=== PATIENT | female | born 1950 | race Caucasian/White ===

== ENCOUNTER → 2021-07-21 15:37 | Outpatient (BNVA) | payer MEDICARE, SELFPAY | PROVIDERS: Visit Provider Family Medicine | DX: E11.9 Type 2 diabetes mellitus without complications (principal); E78.2 Mixed hyperlipidemia; J44.9 Chronic obstructive pulmonary disease, unspecified; K21.9 Gastro-esophageal reflux disease without esophagitis; I10 Essential (primary) hypertension; Z68.31 Body mass index [BMI] 31.0-31.9, adult; Z76.89 Persons encountering health services in other specified circumstances | CPT/HCPCS: 80053; 83036; 85025 ==

== ENCOUNTER 2021-10-20 13:52 | Outpatient (CLI) | payer MEDICARE, OTHER, SELFPAY ==
--- NOTE | 2021-10-20 14:15 | USCV_ITS ---
Tita Buchanan Age: 71 Gender: F : 1950 Exam Date: 10/20/2021 14:03 Ordering Phys: Elroy Luevano MD (Andy) ([email or web address] [place] Technologist: Dominik Christine Exam Location: [facility] [place] Indication: occlusion and stenosis of bilateral carotid arteries Risk Factors: known occluded lt ica Previous Vascular Surgery: R CEA Right Brachial BP: / Left Brachial BP: / Right Left Velocity (cm/s) Spectral Plaque Velocity (cm/s) Spectral Plaque Syst/Diast Broadening Syst/Diast Broadening 72.80/ 16.50 Prox CCA 73.80 / 4.70 71.70/ 11.00 Mid CCA 41.10 / 6.40 76.10/ 12.10 Distal CCA 33.60 / 10.70 90.40/ 15.40 Prox ICA / 136.70/30.90 Mid ICA / 119.10/24.30 Distal ICA / 146.60 ECA 330.40 1.91 ICA/CCA Antegrade Vertebral Antegrade 52.80/ 18.60 cm/s 41.10/ 20.80 cm/s Tri Subclavian Tri 83.90 74.60 CONCLUSIONS Prior Right CEA. No recurrent Right ICA stenosis. Right ICA stenosis <50%. Known Left ICA occlusion. Left CCA is patent. >50% Left ECA stenosis Normal antegrade Doppler flow noted in the right vertebral artery. Normal antegrade Doppler flow noted in the left vertebral artery. Gallito Proctor MD (Electronically Signed) Final Date: 20 October 2021 17:07 S
== END 2021-10-20 13:53 | disposition home or self-care (01) ==
LOC: RAD 13:55
PROVIDERS: PCP Nurse Practitioner Adult Health; Visit Provider Thoracic Surgery (Cardiothoracic Vascular Surgery)
DX: I65.23 Occlusion and stenosis of bilateral carotid arteries (principal)
CPT/HCPCS: 93880

== ENCOUNTER → 2021-11-26 10:08 | Outpatient (BNVA) | payer MEDICARE, OTHER, SELFPAY | PROVIDERS: PCP Nurse Practitioner Adult Health; Visit Provider Thoracic Surgery (Cardiothoracic Vascular Surgery) | DX: I65.23 Occlusion and stenosis of bilateral carotid arteries (principal); Z48.812 Encounter for surgical aftercare following surgery on the circulatory system; Z87.891 Personal history of nicotine dependence | CPT/HCPCS: 99213 ==

== ENCOUNTER → 2022-01-20 12:06 | Outpatient (BNVA) | payer MEDICARE, OTHER, SELFPAY | PROVIDERS: PCP Family Medicine; Visit Provider Family Medicine | DX: E78.2 Mixed hyperlipidemia (principal); I10 Essential (primary) hypertension; E11.9 Type 2 diabetes mellitus without complications; L65.9 Nonscarring hair loss, unspecified; K21.9 Gastro-esophageal reflux disease without esophagitis | CPT/HCPCS: 80048; 84439; 84443 ==

== ENCOUNTER 2022-05-10 10:25 | Outpatient (CLI) | payer MEDICARE, OTHER, SELFPAY ==
--- NOTE | 2022-05-10 11:15 | USCV_ITS ---
ChanelTita Age: 71 Gender: F : 1950 Exam Date: 05/10/2022 10:40 Ordering Phys: Elroy Luevano MD (Andy) ([email or web address] [place]) Technologist: PORTER TONG Exam Location: [facility] [place] Indication: rt cea 6 months ago, left side occluded Risk Factors: Previous Vascular Surgery: Right Brachial BP: / Left Brachial BP: / Right Left Velocity (cm/s) Spectral Plaque Velocity (cm/s) Spectral Plaque Syst/Diast Broadening Syst/Diast Broadening 89.20/ 20.00 Prox CCA 45.60 / 7.20 91.60/ 17.60 Mid CCA 33.90 / 8.50 82.20/ 23.50 Distal CCA 37.80 / 9.80 117.60/30.20 Prox ICA / 104.00/22.90 Mid ICA / 97.80/ 25.70 Distal ICA / 123.80 ECA 310.20 1.28 ICA/CCA Antegrade Vertebral Antegrade 43.80/ 12.90 cm/s 46.30/ 20.90 cm/s Bi Subclavian Bi 63.10 104.7 0 CONCLUSIONS Right ICA stenosis <50%. Prior Right CEA Left ICA occlusion unchanged since 10/27 Normal antegrade Doppler flow noted in the right vertebral artery. Normal antegrade Doppler flow noted in the left vertebral artery. Gallito Proctor MD (Electronically Signed) Final Date: 10 May 2022 16:33 S
== END 2022-05-10 10:26 | disposition home or self-care (01) ==
LOC: RAD 10:25
PROVIDERS: PCP Family Medicine; Visit Provider Thoracic Surgery (Cardiothoracic Vascular Surgery)
DX: I65.23 Occlusion and stenosis of bilateral carotid arteries (principal)
CPT/HCPCS: 93880

== ENCOUNTER → 2022-11-16 10:33 | Outpatient (BNVA) | payer MEDICARE, OTHER, SELFPAY | PROVIDERS: PCP Family Medicine; Visit Provider Nurse Practitioner | DX: R23.3 Spontaneous ecchymoses (principal) | CPT/HCPCS: 85025 ==

== ENCOUNTER → 2022-12-14 10:49 | Outpatient (BNVA) | payer MEDICARE, OTHER, SELFPAY | PROVIDERS: PCP Family Medicine; Visit Provider Family Medicine | DX: E78.2 Mixed hyperlipidemia (principal); E11.9 Type 2 diabetes mellitus without complications; I10 Essential (primary) hypertension | CPT/HCPCS: 80053; 80061; 83036; 84443 ==

== ENCOUNTER 2023-04-22 11:52 | Outpatient (CLI) | payer MEDICARE, OTHER, SELFPAY ==
--- NOTE | 2023-04-22 12:45 | USCV_ITS ---
ChanelTita Age: 72 Gender: F : 1950 Exam Date: 04/22/2023 12:57 Ordering Phys: Elroy Luevano MD (Andy) ([email or web address] [place]) Technologist: TREY Exam Location: [facility] [place] Indication: Stenosis Risk Factors: Previous Vascular Surgery: Right Brachial BP: / Left Brachial BP: / Right Left Velocity (cm/s) Spectral Plaque Velocity (cm/s) Spectral Plaque Syst/Diast Broadening Syst/Diast Broadening 67.70/ 11.20 Prox CCA 64.10 / 8.20 71.20/ 16.90 Mid CCA 43.60 / 9.90 71.20/ 16.30 Distal CCA 37.40 / 9.90 64.80/ 11.10 Prox ICA / 83.00/ 19.20 Mid ICA / 95.10/ 27.30 Distal ICA / 126.50 ECA 275.10 1.34 ICA/CCA Antegrade Vertebral Antegrade 60.70/ 11.10 cm/s 31.10/ 12.40 cm/s Tri Subclavian Tri 140.0 98.10 0 FINDINGS Comparison:. 05/10/22 Known occluded left ICA. No significant progression of velocity right ICA. Antegrade vertebral arteries. CONCLUSIONS Right ICA stenosis < 50%. No interval change in stenosis since prior exam. Complete occlusion left ICA. Dr. Mitzi Barillas DO (Electronically Signed) Final Date: 25 April 2023 08:03 S
== END 2023-04-22 11:53 | disposition home or self-care (01) ==
PROVIDERS: PCP Family Medicine; Visit Provider Thoracic Surgery (Cardiothoracic Vascular Surgery)
DX: I65.23 Occlusion and stenosis of bilateral carotid arteries (principal)
CPT/HCPCS: 93880

== ENCOUNTER → 2023-06-09 13:33 | Outpatient (BNVA) | payer MEDICARE, OTHER, SELFPAY | PROVIDERS: PCP Family Medicine; Visit Provider Thoracic Surgery (Cardiothoracic Vascular Surgery) | DX: Z48.812 Encounter for surgical aftercare following surgery on the circulatory system (principal) | CPT/HCPCS: 99213 ==

== ENCOUNTER → 2023-06-14 10:48 | Outpatient (BNVA) | payer MEDICARE, OTHER, SELFPAY | PROVIDERS: PCP Family Medicine; Visit Provider Family Medicine | DX: E11.9 Type 2 diabetes mellitus without complications (principal); E78.2 Mixed hyperlipidemia; I10 Essential (primary) hypertension; J44.9 Chronic obstructive pulmonary disease, unspecified | CPT/HCPCS: 80053; 80061; 83036; 85025 ==

== ENCOUNTER 2023-06-22 13:14 | Outpatient (CLI) | payer MEDICARE, OTHER, SELFPAY ==
--- NOTE | 2023-06-22 13:21 | MM_ITS ---
WS: [id number] BILATERAL 3D TOMOSYNTHESIS DIGITAL SCREENING MAMMOGRAM WITH CAD CLINICAL INFORMATION: Z12.39 - Encounter for other screening for malignant neop... HISTORY: Screening mammogram. No current complaints. COMPARISON: None. TECHNIQUE: Bilateral CC and MLO views. FINDINGS: Fatty-replaced breasts bilaterally. No suspicious focal mass, asymmetry, calcifications, or lead principal technical architect ural distortion. No evidence of malignancy. Incidental punctate calcification LEFT breast. IMPRESSION: MM/[place] [id number] BI-RADS: 2-Benign FOLLOW UP: 1 Year Follow-up Recommend return to annual screening mammography.
== END 2023-06-22 13:15 | disposition home or self-care (01) ==
LOC: RAD 13:15
PROVIDERS: PCP Family Medicine; Visit Provider Family Medicine
DX: Z12.31 Encounter for screening mammogram for malignant neoplasm of breast (principal)
CPT/HCPCS: 77063; 77067

== ENCOUNTER → 2024-03-06 14:53 | Outpatient (BNVA) | payer MEDICARE, OTHER, SELFPAY | PROVIDERS: PCP Family Medicine; Visit Provider Family Medicine | DX: I10 Essential (primary) hypertension (principal); E11.9 Type 2 diabetes mellitus without complications; E78.2 Mixed hyperlipidemia; R79.89 Other specified abnormal findings of blood chemistry | CPT/HCPCS: 80061; 82607; 83036; 84443; 85025 ==

== ENCOUNTER → 2024-08-14 14:00 | Outpatient (BNVA) | payer MEDICARE, OTHER, SELFPAY | PROVIDERS: PCP Family Medicine; Visit Provider Family Medicine | DX: R79.89 Other specified abnormal findings of blood chemistry (principal); I10 Essential (primary) hypertension; E11.9 Type 2 diabetes mellitus without complications; E78.2 Mixed hyperlipidemia; E55.9 Vitamin D deficiency, unspecified | CPT/HCPCS: 80053; 80061; 82306; 82607; 83036; 84443 ==

== ENCOUNTER 2024-08-21 12:56 | Outpatient (CLI) | payer MEDICARE, OTHER, SELFPAY ==
--- NOTE | 2024-08-21 13:30 | USCV_ITS ---
Tita Buchanan Age: 74 Gender: F : 1950 Exam Date: 08/21/2024 13:07 Ordering Phys: Ned Ramirez DO Technologist: USR Exam Location: [facility] [place] Indication: rt side endartectomy follow up. known lt occlusion Risk Factors: Previous Vascular Surgery: Right Brachial BP: / Left Brachial BP: / Right Left Velocity (cm/s) Spectral Plaque Velocity (cm/s) Spectral Plaque Syst/Diast Broadening Syst/Diast Broadening 93.20/ 15.40 Prox CCA 56.60 / 7.50 61.90/ 14.00 Mid CCA 40.30 / 7.70 78.80/ 17.80 Distal CCA 27.60 / 5.00 63.10/ 16.20 Prox ICA / 85.00/ 25.90 Mid ICA / 77.50/ 18.50 Distal ICA / 92.60 ECA 307.90 0.80 ICA/CCA Antegrade Vertebral Antegrade 55.60/ 9.80 cm/s 38.80/ 21.60 cm/s Tri Subclavian [place] 114.7 33.80 0 FINDINGS comparison 04/30 CONCLUSIONS Prior RIGHT CEA. No recurrent stenosis Chronic occlusion LEFT ICA unchanged Intimal thickening in the common carotid arteries and internal carotid arteries bilaterally. Normal antegrade Doppler flow noted in the right vertebral artery. Normal antegrade Doppler flow noted in the left vertebral artery. Gallito Proctor MD (Electronically Signed) Final Date: 21 August 2024 17:01 S
== END 2024-08-21 12:57 | disposition home or self-care (01) ==
LOC: RAD 12:58
PROVIDERS: PCP Family Medicine; Visit Provider Family Medicine
DX: Z48.812 Encounter for surgical aftercare following surgery on the circulatory system (principal); I65.22 Occlusion and stenosis of left carotid artery; R93.89 Abnormal findings on diagnostic imaging of other specified body structures
CPT/HCPCS: 93880

== ENCOUNTER → 2025-02-06 10:45 | Outpatient (BNVA) | payer MEDICARE, OTHER, SELFPAY | PROVIDERS: PCP Family Medicine; Visit Provider Family Medicine | DX: E78.2 Mixed hyperlipidemia (principal); E11.9 Type 2 diabetes mellitus without complications; I10 Essential (primary) hypertension; E55.9 Vitamin D deficiency, unspecified; R79.89 Other specified abnormal findings of blood chemistry; K21.9 Gastro-esophageal reflux disease without esophagitis; J44.9 Chronic obstructive pulmonary disease, unspecified; H60.90 Unspecified otitis externa, unspecified ear; G72.0 Drug-induced myopathy; T46.6X5A Adverse effect of antihyperlipidemic and antiarteriosclerotic drugs, initial encounter; H60.8X3 Other otitis externa, bilateral | CPT/HCPCS: 80053; 80061; 82043; 82306; 82607; 83036; 84443; 85025 ==